=== PATIENT | female | born 1990 | race African-American/Black ===

== ENCOUNTER → 2017-01-04 | Outpatient (CLI) | payer OTHER ==
--- NOTE | ~2017-01-04 | US6 ---
[facility] A Service of [facility] RADIOLOGY TEXT RESULTS PATIENT: FUNMILAYO MONTES DE OCA LOCATION: [facility] : 88 UNIT #: [id number] AGE: [address]: Yessy Brcok MD SEX: F ORDER DR: [id number] [facility] [address] [place], [place] [address] [id number] O MR#: [id number] Acc #: [id number] NAME: FUNMILAYO MONTES DE OCA : 1990 SEX: F STUDY DATE/TIME: 01/04/2017 10:37 UNIT: [facility] ROOM: STUDY DESCRIPTION: US Abdominal Limited Attending Physician: Yessy Brock M.D. Referring Physician: Yessy Brock M.D. Ordering Physician: Yessy Brock M.D. Primary Care Physician: Yessy Brock M.D. MEDICAL IMAGING REPORT This report is preliminary unless electronic signature is present EXAM Right upper quadrant abdominal ultrasound INDICATIONS Elevated liver enzyme levels. PROCEDURE Thompson-scale and Doppler imaging right upper quadrant abdomen. COMPARISON None FINDINGS Visualized portions of pancreas unremarkable. Liver measures 14.3 cm. No liver mass on submitted images. Unremarkable gallbladder. Right kidney measures 11.6 cm. No hydronephrosis. Common duct measures 2 mm. IMPRESSION Negative right upper quadrant ultrasound Dictated by... Evgeny Paez M.D. THIS IS AN ELECTRONICALLY VERIFIED REPORT Evgeny Paez M.D. at 01/05/2017 2:17 PM EED/rnr TD: 01/04/2017 12:21 JOB #: [id number] MEDICAL IMAGING REPORT Page 1 of 1 COPY
== END | disposition home or self-care (01) ==
LOC: CWCC 10:21
DX: R74.8 Abnormal levels of other serum enzymes (principal)
CPT/HCPCS: 76705

== ENCOUNTER → 2017-01-22 | Outpatient (CLI) | payer OTHER ==
--- NOTE | ~2017-01-22 | EKG ---
PATIENT: FUNMILAYO MONTES DE OCA UNIT #: [id number] Ventricular Rate: 71 BPM Atrial Rate: 71 BPM P-R Interval: 174 ms QRS Duration: 88 ms Q-T Interval: 388 ms QTC Calculation(Bezet): 421 ms P Rescue: 24 degrees Calculated R Rescue: -5 degrees Calculated T Rescue: -3 degrees Diagnosis Line: Normal sinus rhythm Diagnosis Line: Minimal voltage criteria for LVH, may be normal Diagnosis Line: variant Diagnosis Line: Otherwise normal ECG Diagnosis Line: No previous ECGs available Diagnosis Line: Confirmed by DARWIN MCKINNON MD ([id number]) on 01/24/2017 Diagnosis Line: 9:45:52 AM INTERPRETING MD: INO SNOW
== END | disposition home or self-care (01) ==
LOC: CEKG 11:38
DX: R07.89 Other chest pain (principal)
CPT/HCPCS: 93005